=== PATIENT | female | born 1975 | race Caucasian/White ===

== ENCOUNTER 2017-04-18 16:24 | Emergency (ER) | payer OTHER | END 2017-04-18 22:11 | disposition short-term general hospital (02) | LOC: ER 16:24 | DX: N17.9 Acute kidney failure, unspecified (principal); E87.6 Hypokalemia; N39.0 Urinary tract infection, site not specified; L03.115 Cellulitis of right lower limb; I10 Essential (primary) hypertension; F41.9 Anxiety disorder, unspecified; Z79.899 Other long term (current) drug therapy; Z88.5 Allergy status to narcotic agent; Z88.8 Allergy status to other drugs, medicaments and biological substances | CPT/HCPCS: 36415; 51702; 96361; 96365; J0696 ==